=== PATIENT | male | born 1965 | race Caucasian/White ===

== ENCOUNTER → 2020-09-18 08:45 | Outpatient (BNVA) | payer MEDICARE, MEDICAID, SELFPAY | PROVIDERS: Family Provider Family Medicine; PCP Family Medicine; Visit Provider Psychiatry & Neurology Neurology | DX: R20.2 Paresthesia of skin (principal); M54.12 Radiculopathy, cervical region | CPT/HCPCS: 95886; 95911 ==

== ENCOUNTER 2022-02-06 20:37 | Emergency (ER) | payer MEDICARE, MEDICAID, SELFPAY ==
[2022-02-06 20:40] VITALS: PULSE 100; RESP 18; TEMP 36.8; O2SAT 98; BMI 24.3
[2022-02-06 20:45] VITALS: BP 122/85; BP_SYST 130; PULSE 110; RESP 24; O2SAT 98
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
[2022-02-06 20:55] VITALS: RESP 24
[2022-02-06] MEDS: HYDROmorphone 1 mg/mL INJ 1 mL IVP (20:55)
[2022-02-06] MEDS: sodium chloride 0.9% 1,000 ML 999 ML IV (20:55)
[2022-02-06 21:07] VITALS: BP 136/70; RESP 20; O2SAT 96
[2022-02-06 21:10] LABS: INR 0.93 (0.8-1.2)
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
[2022-02-06 21:20] LABS: Basophils # 0.1 10^3/uL (0.0-0.1); Basophils % 0.7 %; Eosinophils % 0.3 %; Hematocrit 44.7 % (42.0-52.0); Hemoglobin 14.7 g/dL (11.7-16.6); Lymphocytes # 2.9 10^3/uL (0.8-4.8); Lymphocytes % 38.6 %; Mean Corpuscular HGB Conc 32.9 g/dL (30.0-36.0); Mean Corpuscular Hemoglobin 31.9 pg (28.0-34.0); Mean Platelet Volume 9.3 fL (7.4-10.4); Monocytes # 0.5 10^3/uL (0.2-0.9); Monocytes % 6.5 %; Neutrophils # 4.05 10^3/uL (1.8-7.7); Neutrophils % 53.4 %; Nucleated Red Blood Cells % 0 %; Platelet Count 291 10^3/cmm (130-400); Red Blood Count 4.61 10^6/uL (4.1-5.3); Red Cell Distribution Width 11.5 % (12.1-15.1); White Blood Count 7.6 10^3/uL (4.0-10.0)
[2022-02-06 21:23] LABS: Alanine Aminotransferase 23 U/L (0-41); Albumin Level 4.7 g/dL (3.5-5.2); Alcohol Level 228 mg/dL (0-10); Alkaline Phosphatase 112 U/L (40-130); Anion Gap 17.1 (5-19); Aspartate Amino Transferase 23 U/L (0-40); Blood Urea Nitrogen 14 mg/dL (6-20); Calcium 9.1 mg/dL (8.5-10.5); Carbon Dioxide 24 mmol/L (22-29); Chloride 103 mmol/L (98-107); Globulin 3.2 g/dL (1.3-4.6); Glomerular Filtration Rate 69.8 mL/min (90-130); Glucose 124 mg/dL (65-115); Osmolality Calculated 292 mOsm/kg (285-295); Potassium 4.1 mmol/L (3.5-5.1); Sodium 140 mmol/L (136-145); Total Bilirubin 0.2 mg/dL (0.15-1.2); Total Protein 7.9 g/dL (6.6-8.7)
[2022-02-06] MEDS: iohexol 350 mg/mL 100 mL Btl IV (21:30)
[2022-02-06 21:34] LABS: Amphetamines Screen Urine Negative (Negative); Barbiturates Screen Urine Negative (Negative); Benzodiazepines Screen Urine Negative (Negative); Cocaine Screen Urine Negative (Negative); Opiate Screen Urine Positive (Negative); PCP Screen Urine Negative (Negative); THC Screen Urine Positive (Negative)
[2022-02-06 21:40] LABS: Add Urine Microscopic? YES; Bilirubin Urine Neg (Negative); Blood Urine 3+ (Negative); Glucose Urine UA Norm (Normal); Ketones Urine Negative (Negative); Leukocyte Esterase Urine Negative (Negative); Nitrate Urine Negative (Negative); Protein Urine Neg (Negative); Urine Appearance Clear (CLEAR); Urine Color Straw (Yellow); Urobilinogen Urine Neg (Negative); pH Urine 5 (5-7)
[2022-02-06 21:41] LABS: Add Urine Culture? No; Mucus Urine TRACE /hpf; RBC Urine 0-4 /hpf (0-2); Squamous Epithelial Cell Urine 0-4 /hpf (0-5); WBC Urine 0-4 /hpf (0-5)
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
[2022-02-06 22:47] VITALS: BP 127/84; PULSE 128; RESP 19; O2SAT 90
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
--- NOTE | 2022-02-06 23:14 | PC.NURSE ---
patient done speaking with officers, taken to private vehicle via [facility] [address], daughters and son in law to drive home.
== END 2022-02-06 23:14 | disposition home or self-care (01) ==
PROVIDERS: Emergency Provider Emergency Medicine; PCP Family Medicine
DX: S22.42XA Multiple fractures of ribs, left side, initial encounter for closed fracture (principal); Y08.89XA Assault by other specified means, initial encounter; V03.00XA Pedestrian on foot injured in collision with car, pick-up truck or van in nontraffic accident, initial encounter
CPT/HCPCS: 70450; 71260; 72125; 73630; 74177; 80053; 80306; 80307; 81001; 85025; 85610; 96361; 96374; 99285; J1170; J7030; Q9967